=== PATIENT | male | born 1950 | race Caucasian/White ===

== ENCOUNTER → 2016-09-23 | Outpatient (CLI) | payer MEDICARE ==
[~2016-09-23] MED LIST: LIPITOR PO; LOPRESSOR PO
--- NOTE | ~2016-09-23 | HM ---
Unit #: [id number] #: [id number] Patient: DINORAH KRUGER [id number] [address] [place], [place] [address] [id number] MR#: [id number] NAME: DINORAH KRUGER. : 1950 SEX: M STUDY DATE/TIME: UNIT: [facility] [place] ROOM: STUDY DESCRIPTION: Holter monitor Attending Physician: Saritha Witt M.D. Referring Physician: Saritha Witt M.D. Primary Care Physician: Saritha Witt M.D. CARDIOLOGY REPORT EXAM [id number] Holter REASON FOR THE STUDY Palpitations. FINDINGS Underlying rhythm is normal sinus rhythm with an average heart rate of 71 beats per minute, minimum heart rate of 46 beats per minute and a maximum heart rate of 107 beats per minute. The minimum heart rate of 46 beats per minute is noted at 5:43 a.m. The maximum heart rate of 107 beats per minute is noted at 8:45 p.m. Patient had a 0.7 second pause noted at 1:24 p.m. Patient had 230 single multifocal premature ventricular complexes, 11 ventricular couplets noted. The patient had 86 single premature atrial complexes noted. Patient had a four-beat run of paroxysmal supraventricular tachycardia at a heart rate of 142 beats per minute noted at 6:58 a.m. Patient did not record any symptoms. CONCLUSION 1. Underlying rhythm is normal sinus rhythm with an average heart rate of 71 beats per minute, minimum heart rate of 46 beats per minute and a maximum heart rate of 107 beats per minute. 2. No sustained atrial or ventricular arrhythmias noted. 3. No significant pauses noted. 4. Rare single multifocal single premature ventricular complex noted. 5. Rare single premature atrial complex noted. 6. Patient did not record any symptoms. Dictated by... Manoj Arenas TD: 09/29/2016 18:39 JOB #: [id number] Unit #: [id number] #: [id number] Patient: DINORAH KRUGER CARDIOLOGY REPORT Page 1 of 1 X Regine Muñiz MD <ELECTRONICALLY SIGNED> 12/27/16 1429 HOLTER MONITOR REPORT
== END | disposition home or self-care (01) ==
LOC: CEKG 09:32
DX: R00.2 Palpitations (principal)
CPT/HCPCS: 93225; 93226